=== PATIENT | male | born 1940 | race Two or more races ===

== ENCOUNTER 2024-10-26 15:19 | Emergency (ER) | payer OTHER ==
[~2024-10-26] VITALS: Ht 172.7 cm; Wt 59.0 kg
[2024-10-26] MEDS ORDERED: TAMS0.4C (15:43)
[2024-10-26] MEDS ORDERED: LEVOTHYROXINE25 MCG (15:43)
[2024-10-26] MEDS ORDERED: PROSCAR5 MG (15:43)
[2024-10-26] MEDS ORDERED: 0.9 % SODIUM CHLORIDE 500 ML IV ONE (16:30)
[2024-10-26] MEDS ORDERED: GUAIFENESIN/DEXTROMETHORPHAN 100MG/10ML BLIST.PACK PO ONE (16:30)
[2024-10-26 16:49] LABS: BASO % 0.4 % (0.1-1.2); EOS # 0.01 (0.04-0.54); EOS % 0.1 % (0.7-7.0); LYMPH # 0.56 (1.18-3.74); LYMPH % 7.8 % (19.3-53.1); MEAN PLATELET VOLUME 11.90 fl (9.4-12.4); MONO # 0.69 (0.24-0.82); MONO % 9.7 % (4.7-12.5); NEUT # 5.85 (1.56-6.13); NEUT % 81.9 % (34.0-71.1); RED CELL DISTRIBUTION WIDTH 14.4 % (11.6-14.4)
[2024-10-26 17:08] LABS: COVID-19 AG NEGATIVE (NEGATIVE)
[2024-10-26 17:11] LABS: INR 1.1
[2024-10-26 18:47] LABS: GLUCOSE FASTING 93.0 mg/dL (65-100)
[2024-10-26 18:48] LABS: ALT/SGPT 21.0 U/L (12-78); AST/SGOT 16.0 U/L (15-37); BILIRUBIN TOTAL 0.72 mg/dL (0.3-1.2); BUN CREA RATIO 16.0 (7.0-25.0); CREATININE SERUM 0.86 mg/dL (0.70-1.30); GFR 84.93; GLOBULINA 3.3 G/DL (2.4-3.5); OSMOLALITY SERUM 287.0 MOSM/KG (275-295)
[2024-10-26 19:46] LABS: URINE APPEARANCE Clear; URINE BILIRRUBIN Negative (NEGATIVE); URINE BLOOD Negative; URINE COLOR Yellow; URINE GLUCOSE Negative (NEGATIVE); URINE KETONE Trace (NEGATIVE); URINE LEUKOCYTE Trace; URINE NITRATE Negative; URINE PROTEIN Trace (NEGATIVE); URINE UROBILINOGEN 0.2 E.U./dl
[2024-10-26 19:48] LABS: URINE BACTERIA 13.2 uL (0.0-1933); URINE EPITHELIAL CELLS 13.9 uL (0.0-38.8); URINE RBC 15.5 uL (0.0-20.8); URINE WBC 17.8 uL (0.0-23.2)
[2024-10-26 19:49] LABS: URINE CAST 0.14 uL (0.0-1.40)
== END 2024-10-26 22:09 ==
LOC: ER 15:19
PROVIDERS: General Practice
DX: R53.1 Weakness (principal); R05.8 Other specified cough; Z88.6 Allergy status to analgesic agent; E03.8 Other specified hypothyroidism; N40.0 Benign prostatic hyperplasia without lower urinary tract symptoms; Z90.49 Acquired absence of other specified parts of digestive tract; Z20.822 Contact with and (suspected) exposure to COVID-19
CPT/HCPCS: 36415; 93005; 96365; 96366; 99282; J7042